=== PATIENT | female | born 1985 | race Caucasian/White ===

== ENCOUNTER 2022-12-28 20:48 | Emergency (ER) | payer OTHER, SELFPAY ==
--- NOTE | ~2022-12-28 | XR_ITS ---
EXAMINATION: XR chest 2V Exam Date/Time: 12/28/2022 22:05 CDT HISTORY: RIGHT ANTERIOR CHEST PAIN INFERIOR TO R BREAST. Comparison: None available. RESULT: Lines, tubes, and devices: Cholecystectomy clips. Lungs and pleura: Clear. Cardiomediastinal silhouette: Stable. Other: No acute osseous or upper abdominal finding. IMPRESSION: No acute cardiopulmonary process. Reviewed, dictated and finalized at location K.
--- NOTE | ~2022-12-28 | CT_ITS ---
EXAMINATION: CT abdomen pelvis w con DATE: 12/28/2022 22:39 INDICATION: RIGHT UPPER QUADRANT ABDOMINAL PAIN TODAY. NAUSEA. TECHNIQUE: Computed tomography (CT) of the abdomen and pelvis was performed with 100 mL Omnipaque-350 intravenous contrast. Automated exposure control and iterative reconstruction technique were employe d. The dose-length product was 397.41 mGy-cm. COMPARISON: None. FINDINGS: Lower thorax: Unremarkable Liver: Normal. Biliary/Gallbladder: Gallbladder is absent. Intra and extra hepatic bile duct dilation. Pancreas: Mild dilation of the proximal aspect of the main pancreatic duct. Spleen: Normal. Adrenals:No mass. Kidneys: No mass, stone, or hydronephrosis. GI tract: Distal esophageal and gastric wall edema. No small or large bowel dilation. Normal appendix . Mesentery/Peritoneum: No ascites, mass, or free air. Retroperitoneum: No mass. Pelvis: Mild wall thickening of the partially distended urinary bladder. Remaining pelvic organs are within normal limits. Soft Tissues: Soft tissues and body wall unremarkable. Bones: No acute osseous finding. IMPRESSION: Esophagitis/gastritis. Intra and extrahepatic bile duct dilation with proximal dilation of the main p ancreatic duct, without identification of an obstructing stone or mass, correlate with biliary labs. Status post cholecystectomy. Possible cystitis. Reviewed, dictated and finalized at location K. IMPRESSION: Esophagitis/gastritis. Intra and extrahepatic bile duct dilation with proximal dilation of the main pancreatic duct, without identification of an obstructing stone or mass, correlate with biliary labs. Status post cholecystectomy. Possib le cystitis.
[2022-12-28 20:51] VITALS: BP 152/96; PULSE 90; RESP 18; TEMP 36.7; O2SAT 99
--- NOTE | 2022-12-28 21:05 | ED.GENADULT ---
HPI - General Adult General Chief complaint: Dental/Oral Stated complaint: side pain History of Present Illness HPI narrative: This is a 37-year-old female with reported history of colon mass and family history of colon cancer, who presents to the emergency department complaining of right upper quadrant abdominal pain and bilateral jaw pain. She states she has cavities and has had bilateral jaw pain rated 4/10, described as dull for the past day. She also complains of quick onset right upper quadrant, sharp, 8/10 abdominal pain. This is accompanied by nonproductive, nonbloody cough. She denies any recent trauma, nausea or vomiting. Related Data Allergies Allergy/AdvReac Type Severity Reaction Status Date / Time No Known Allergies Allergy Unknown Verified 05/14/09 10:42 Review of Systems Review of Systems: CONSTITUTIONAL: Denies fever, chills, or sweats. EYES: Denies visual changes, redness, or discharge. ENT: Upper respiratory congestion and rhinorrhea, bilateral jaw pain denies sore throat, or otalgia. CARDIOVASCULAR: Denies chest pain, palpitations, or edema. RESPIRATORY: Denies cough or dyspnea. GASTROINTESTINAL: Right upper quadrant abdominal pain denies nausea, vomiting, or diarrhea. GENITOURINARY: Denies dysuria or hematuria. SKIN: Denies rash or itching. MUSCULOSKELETAL: Denies back pain, joint pain, or myalgia. NEUROLOGIC: Denies headache, numbness, dizziness, or weakness. PSYCHIATRIC: Denies anxiety or depression. PMFSH Past Medical History Medical History Opioid dependence, continuous (09/24/14) Surgical History Surgical History (Updated 12/28/22 @ 21:10 by Roldan Narvaez MD) Status post section Status post cholecystectomy Family History Family History Other Colon polyp Social History Social History (Updated 12/28/22 @ 21:11 by Roldan Narvaez MD) Smoking status: Current every day smoker Alcohol intake: current Substance use: former Substance use type: opiates Exam Narrative: GENERAL: Well-developed, well-nourished, and in no acute distress. Appears uncomfortable HEAD: Normocephalic, atraumatic. EYES: PERRLA and EOMI. ENT: Multiple dental caries. Nares clear, no rhinorrhea or epistaxis. Mucous membranes moist. Oropharynx without tonsillar hypertrophy exudate or other lesions. CHEST: Clear to auscultation. No respiratory distress. No wheezes rales or rhonchi. Tender to palpation over the right seventh and eighth rib spaces. No step-off or crepitus HEART: Regular rate and rhythm. No murmur heard. Normal peripheral pulses. ABDOMEN: Soft, tender to palpation in the right upper quadrant without rebound or guarding, nondistended, normal active bowel sounds. EXTREMITIES: Normal range of motion. No edema. SKIN: Warm, dry, no rash. NEURO: No focal deficits. Alert and oriented x3. PSYCH: Normal mood and affect. Course Course Emergency Course: 21:20 - The patient's constellation of symptoms unusual. In the presence of a possible colon mass and family history of malignancy, the patient's Wells score is 1. Will obtain D-dimer; if positive will obtain a CT PE study 22:50 - Lipase elevated at 670. CBC unremarkable. Chemistries otherwise unremarkable. UA not concerning for UTI and test negative. D-dimer negative, my suspicion for PE is decreased at this time. On my review, chest x-ray is unremarkable. Radiology interpretation of CT abdomen pelvis and chest x-ray pending. On reevaluation, the patient states her pain is improved. She notes drinking an alcoholic beverage prior to arrival with worsening of her pain. I suspect she may have alcohol induced pancreatitis. Review of [facility] is not concerning for opioid abuse. 23:14 - CT abdomen pelvis demonstrates bile duct dilation without obvious obstruction or other acute inflammation of the p
[2022-12-28] MEDS: ONDANSETRON INJ 4 MG/2 ML VIAL IV PUSH (21:18)
[2022-12-28] MEDS: MORPHINE SULFATE (*CRX) 4 MG/ML INJ IV PUSH (21:18)
[2022-12-28 21:21] VITALS: BP 138/90; PULSE 80; RESP 20; O2SAT 95
[2022-12-28 21:25] LABS: Basophils Absolute Auto 0.03 K/mm3 (0.00-0.10); Basophils Percent Auto 0.3 % (0.0-1.0); Eosinophils Absolute Auto 0.23 K/mm3 (0.02-0.50); Eosinophils Percent Auto 2.4 % (1.0-6.0); Hematocrit 37.9 % (35.0-49.0); Hemoglobin 12.9 g/dL (12.0-15.0); Immature Granulocyte Absolute 0.04 K/mm3 (0.00-0.00); Immature Granulocyte Percent A 0.4 % (0.0-0.0); Lymphocytes Absolute Auto 2.25 K/mm3 (1.10-4.50); Lymphocytes Percent Auto 23.3 % (18.0-42.0); Mean Corpuscular Hemoglobin 29.6 pg (27.0-31.0); Mean Corpuscular Volume 86.9 fL (78.0-102.0); Mean Platelet Volume 9.1 fl (9.2-11.8); Monocytes Absolute Auto 0.75 K/mm3 (0.10-0.90); Monocytes Percent Auto 7.8 % (2.0-11.0); Neutrophils Absolute Auto 6.3 K/mm3 (1.7-7.2); Neutrophils Percent Auto 65.8 % (50.0-70.0); Platelet Count Result 341 K/mm3 (150-420); Red Blood Count 4.36 M/mm3 (4.20-5.40); Red Cell Distribution Width 12.6 % (11.6-14.4); White Blood Count 9.6 K/mm3 (4.8-10.8)
[2022-12-28 21:41] LABS: D Dimer 0.26 mg/L (0.19-0.50); INR 0.9; Prothrombin Time 10.1 Seconds (9.50-12.10)
[2022-12-28 21:42] LABS: Alanine Aminotransferase 55 U/L (14-59); Albumin Level 3.4 g/dL (3.4-5.0); Alkaline Phosphatase 100 U/L (46-116); Anion Gap 7 mmol/L (8-16); Aspartate Amino Transferase 73 U/L (15-37); Bilirubin,Total 0.4 mg/dL (0.00-1.00); Blood Urea Nitrogen 9 mg/dL (7-18); Calcium 8.7 mg/dL (8.5-10.1); Carbon Dioxide 29 mmol/L (21-32); Chloride 106 mmol/L (98-108); Estimated Glomerular Filt Rate > 60; Glucose 95 mg/dL (70-99); Osmolality Calculated 292 mOsm/kg (285-295); Potassium 3.7 mmol/L (3.5-5.1); Sodium 142 mmol/L (136-145)
[2022-12-28 21:43] LABS: Lipase 670 U/L (16-77)
[2022-12-28 21:49] LABS: SPREG INTERNAL CONTROL Positive; Serum Qual hCG Negative
[2022-12-28] MEDS: SODIUM CHLORIDE 0.9% IV 1,000 ML 999 ML IV CONT (21:50)
[2022-12-28 22:14] VITALS: BP 140/88; PULSE 78; RESP 18; O2SAT 95
[2022-12-28 22:55] LABS: Appearance Urine Clear (Clear); Bilirubin Urine Negative (Negative); Blood Urine Negative (Negative); Color Urine Light Yellow (Yellow); Glucose Urine UA Negative (Negative); Ketones Urine Negative (Negative); Leukocyte Esterase Ur Negative LEU/UL (Negative); Nitrate Urine Negative (Negative); Protein Urine Negative (Negative); Specific Grav Ur <= 1.005 (1.010-1.020); pH Urine 6.5 (5.0-8.0)
[2022-12-28 22:56] LABS: Add Urine Microscopic? NO
[2022-12-28] MEDS: oxyCODONE/ACETAMINOPHEN (*CRX) 5-325 MG TABLET 1 TABLET PO (23:00)
[2022-12-28 23:19] VITALS: BP 132/80; PULSE 80; RESP 20; TEMP 36.6; O2SAT 99
== END 2022-12-28 23:34 | disposition home or self-care (01) ==
PROVIDERS: Emergency Provider Preventive Medicine Aerospace Medicine; PCP Physician Assistant
DX: K85.20 Alcohol induced acute pancreatitis without necrosis or infection (principal); K02.9 Dental caries, unspecified; F17.200 Nicotine dependence, unspecified, uncomplicated
CPT/HCPCS: 36415; 71046; 74177; 80053; 81003; 83690; 84703; 85025; 85380; 85610; 96361; 96374; 96375; 99284; A9270; J2270; J2405; J7030; Q9967